=== PATIENT | male | born 1970 | race Caucasian/White ===

== ENCOUNTER 2018-04-26 05:20 | Day surgery (SDC) | payer OTHER ==
[~2018-04-26] VITALS: Ht 182.9 cm; Wt 127.0 kg
--- NOTE | ~2018-04-26 | O ---
[facility] [place] [address] OPERATIVE REPORT Name: LAILA MCKOY Room #: DEP [facility]..#: [id number] Admission: 04/26/18 Attend Phys: Nicholas Jones MD Discharge: 04/26/18 Date of : 70 Report #: [id number] THIS REPORT FOR: //name// CC: Darrion Figueroa DATE OF SERVICE: 04/26/[address] Nicholas Jones and Dr. Darrion Strickland. PREOPERATIVE DIAGNOSES: Subcutaneous soft tissue mass of the back, measuring 6 cm x 3.5 cm and excision of a 1 cm skin lesion on the right posterior thigh. POSTOPERATIVE DIAGNOSES: Subcutaneous soft tissue mass of the back, measuring 6 cm x 3.5 cm and excision of a 1 cm skin lesion on the right posterior thigh. PROCEDURE: Excision of a deep complicated subfascial 6 cm x 3.5 cm soft tissue tumor of the back and a 1 cm skin lesion of the right posterior thigh. SURGEON: Nicholas Jones MD ANESTHESIA: Local. DESCRIPTION OF PROCEDURE: The patient was brought to the operating room and placed on operative table in the prone position. The back and posterior thigh were then prepped and draped in a sterile fashion. Skin and subcutaneous tissue around both areas was infiltrated with 0.5% Marcaine, 1% Xylocaine in a 1:1 mixture. A skin incision was performed around the right posterior thigh lesion using the cutting electrocautery. This was completely excised and sent to pathology as a permanent study. Attention was then turned to the subcutaneous mass in the back. A vertical skin incision was performed over the mass using a #10 scalpel blade. Hemostasis obtained using electrocautery. Dissection was carried down through subcutaneous tissue to this multilobulated soft tissue tumor within the subcutaneous tissue and then also extended down below the fascia. All these lobulations were identified, dissected free and the tumor was resected en bloc and sent specimen to pathology, measuring 6 cm x 3.5 cm. The deep and superficial subcutaneous tissue was then reapproximated using simple interrupted 2-0 chromic sutures and the skin then closed with a running 4-0 subcuticular Vicryl stitch. The right posterior thigh wound was dressed with antibiotic ointment and a Band-Aid. The back was dressed with Mastisol, 1/2-inch Steri-Strips cut in half, Telfa, 4 x 4 gauze, sponge and tape. The patient was then taken to the recovery room awake, alert and in good condition. [address] [address] OPERATIVE REPORT Name: LAILA MCKOY Room #: [facility].#: [id number] Admission: 04/26/18 Attend Phys: Nicholas Jones MD Discharge: 04/26/18 Date of : 70 Report #: [id number] Estimated blood loss was approximately 5 mL and the patient tolerated procedure well. All sponge, lap and instrument counts correct x 2. <ELECTRONICALLY SIGNED> By: Nicholas Jones MD 05/03/18 [id number] [id number] Nicholas Jones MD /nt
--- NOTE | ~2018-04-26 | PATH ---
[facility] [address] [place] [address] PATHOLOGY RPT PROCEDURE Name: SARAVANANNeliLAILA Room #: DEP [facility] M.R.#: [id number] Admission: 04/26/18 Date of : 70 Discharge: 04/26/18 Report #: [id number] Path Case #: [id number] [facility] Accession Number: [id number] . 01 Material submitted: . PART A: SKIN LESION RIHGT POSTERIOR THIGH PART B: SUBCUTANEOUS SOFT MASS OF BACK . 01 Clinical history: . Excision lesion right mid back, right posterior thigh . 02 Diagnosis: A. Skin, lesion right posterior thigh, biopsy: - Compatible with an acrochordon. - Negative for malignancy. . B. Subcutaneous soft mass of back, excision: - Mature adipose tissue compatible with a lipoma associated with areas of fat necrosis. (IUV:pit 04/29/2018) QTP/04/29/2018 . 02 Electronically signed: . Chitra Carrion MD, Pathologist NPI- [id number] . 01 Gross description: . A.The specimen is received in formalin, labeled "Laila Mckoy, skin lesion right posterior thigh", is a michel-pink rubbery soft tissue measuring 1.1 x 0.8 x 0.3 cm. The margin is inked black, serially sectioned and entirely submitted in A1. . B.The specimen is received in formalin, labeled "Laila Mckoy, subcutaneous soft back mass", is an irregular fragment of yellow lobulated soft tissue partially covered by a thin fung-white membrane measuring 5.0 x 4.0 x 1.2 cm. Sectioning reveals michel-pink homogeneous cut surface with no discrete necrosis. Ambulatory Analyst tissue is submitted in B1-B2. (SWS; 04/26/2018) SHS/SHS . 02 Pathologist provided ICD-10: L91.8, D17.30 . 02 CPT . 681845, [id number] Specimen Comment: A courtesy copy of this report has been sent to Specimen Comment: [phone], [place] [address] PATHOLOGY RPT PROCEDURE Name: LAILA MCKOY Room #: DEP [facility] Oskar#: [id number] Admission: 04/26/18 Date of : 70 Discharge: 04/26/18 Report #: [id number] Path Case #: [id number] Specimen Comment: Report sent to / DR RUBIN Performed at: [address], [place], [place] [id number] MD Armin Hinojosa MD Phone: [phone] Performed at: [address] [id number] MD Chitra Carrion MD Phone: [phone]
[~2018-04-26 05:20] MED LIST: ADULT ASPIRIN81 MG PO; IRBESARTAN-HCT1 EAC1 PO
[2018-04-26 12:09] VITALS: BP 130/94
[2018-04-26] MEDS ORDERED: NORCO 5-325 TA1 EACH PO (14:09)
== END 2018-04-26 14:18 | disposition home or self-care (01) ==
LOC: OR 05:20 → TBA 05:21 → OR 10:27
DX: D17.1 Benign lipomatous neoplasm of skin and subcutaneous tissue of trunk (principal); L91.8 Other hypertrophic disorders of the skin; I10 Essential (primary) hypertension; F17.220 Nicotine dependence, chewing tobacco, uncomplicated; Z98.890 Other specified postprocedural states; Z79.899 Other long term (current) drug therapy; Z88.8 Allergy status to other drugs, medicaments and biological substances; Z79.82 Long term (current) use of aspirin; Z79.891 Long term (current) use of opiate analgesic
CPT/HCPCS: 50010; 50101; 50386; 50403; 56524; 56528